=== PATIENT | female | born 2000 | race African-American/Black ===

== ENCOUNTER 2024-11-14 10:46 | Emergency (ER) | payer OTHER, SELFPAY ==
[2024-11-14] MEDS ORDERED: Ketorolac Tromethamine 30 MG (1 mL) VIAL ONE (12:46)
[2024-11-14] MEDS ORDERED: Ondansetron PF 4 MG/2 ML Vial ONE (12:46)
[2024-11-14 13:20] LABS: BHCG - Serum Negative (NEGATIVE); Pregs Control Background? CLEAR/WHITE (CLR/WHITE); Pregs Control Bar Appear? YES (CONTROL BAR)
[2024-11-14 13:21] LABS: #Basophils Less than 0.03 10x3/uL (0.0-0.2); #Eosinophils Less than 0.03 10x3/uL (0.0-0.5); #Monocytes 2.61 10x3/uL (0.0-1.1); #Neutrophils 11.80 10x3/uL (1.5-8.4); %Basophils 0.1 % (0.0-2.0); %Eosinophils 0.1 % (0.0-6.0); %Lymphocytes 7.3 % (18.0-47.0); %Monocytes 16.7 % (0.0-10.0); %Neutrophils 75.3 % (40.0-75.0); Platelet Count 210 10x3/uL (150-450)
[2024-11-14 13:23] LABS: Hematocrit 34.7 % (34.9-44.5); Hemoglobin 11.2 g/dL (12.0-15.5); Mean Corpuscular Hemoglobin 24.9 pg (27.0-33.0); Mean Corpuscular Volume 77.3 fL (81.6-98.3); Red Blood Cell (RBC) Count 4.49 10x6/uL (3.90-5.03); White Blood Cell (WBC) Count 15.66 10x3/uL (3.5-10.5)
[2024-11-14 13:27] LABS: ALT (SGPT) 43 U/L (Less than 34); AST (SGOT) 35 U/L (11-34); Albumin 3.5 g/dL (3.1-4.5); Alkaline Phosphatase 82 U/L (40-110); Anion Gap 17 mmol/L (10-20); BUN (Urea Nitrogen) 7 mg/dL (7.0-18.7); Bilirubin, Total 1.7 mg/dL (0.3-1.2); Calc. Creatinine Clearance 0 mL/min (70-130); Calcium 8.8 mg/dL (7.8-10.44); Carbon Dioxide 21 mmol/L (22-29); Chloride 100 mmol/L (98-107); Globulin 4.0 g/dL (2.4-3.5); Glucose 80 mg/dL (70-105); Lipase 11 U/L (8-78); Potassium 2.9 mmol/L (3.5-5.1); Sodium 135 mmol/L (136-145)
[2024-11-14 13:42] LABS: Glucose, Urine (Dipstick) Normal (Negative); Leukocyte 500 (Negative); Protein, Urine (Dipstick) 100 mg/dl (Neg-Trace); Specific Gravity, Urine 1.010 (1.005-1.030)
[2024-11-14 14:02] LABS: Bacteria/HPF 4+ HPF (None Seen); CAUTI Indications for Culture Fever or rigors; Urine Culture Reflex Yes Yes; WBC/HPF Greater than 50 HPF (0-3)
[2024-11-14] MEDS ORDERED: cefTRIAXone (ROCEPHIN) 1 GM VIAL ONE (14:16)
[2024-11-14] MEDS ORDERED: Acetaminophen 500 MG TAB ONE (14:24)
== END 2024-11-14 14:59 | disposition home or self-care (01) ==
LOC: CSHERS 10:46
DX: N10 Acute pyelonephritis (principal); E87.6 Hypokalemia
CPT/HCPCS: 36415; 80053; 81001; 83605; 83690; 84703; 85025; 87077; 87086; 87428; 93005; 96365; 96375; J0696; J1885